=== PATIENT | male | born 1940 | race Caucasian/White ===

== ENCOUNTER 2021-09-19 10:34 | Outpatient (CLI) | payer MEDICARE, SELFPAY ==
--- NOTE | 2021-09-19 12:00 | NEURO_ITS ---
Impression: # Complains of foot drop and heaviness of legs. # Right chronic peroneal neuropathy; No active denervation noted. # Clinical correlation recommended. Nerve Conduction Studies Anti Sensory Summary Table Stim Site NR Peak (ms) P-T Amp (?V) Site1 Site2 Delta-P (ms) Dist (cm) Brett (m/s) Left Sup Fibular Anti Sensory (Ant Lat Mall) 14 cm 3.8 19.1 14 cm Ant Lat Mall 3.8 16.0 42 Right Sup Fibular Anti Sensory (Ant Lat Mall) 14 cm 3.6 4.9 14 cm Ant Lat Mall 3.6 16.0 44 Left Sural Anti Sensory (Lat Mall) NO RESPONSE Calf NR Calf Lat Mall 16.0 Right Sural Anti Sensory (Lat Mall) Calf 3.6 21.1 Calf Lat Mall 3.6 16.0 44 Motor Summary Table Stim Site NR Onset (ms) O-P Amp (mV) Site1 Site2 Delta-0 (ms) Dist (cm) Brett (m/s) Left Peroneal Motor (Vastus Med) Ankle 4.9 1.0 Popit Ankle 8.6 38.0 44 Popit 13.5 0.6 Right Peroneal Motor (Vastus Med) NO RESPONSE Ankle NR Popit Ankle 0.0 Popit NR B Fib Ankle 0.0 B Fib 13.8 0.0 Left Tibial Motor (Abd Pimentel Brev) Ankle 4.9 2.0 Knee Ankle 8.9 38.0 43 Knee 13.8 1.6 Right Tibial Motor (Abd Pimentel Brev) Ankle 4.9 1.4 Knee Ankle 8.9 39.0 44 Knee 13.8 2.9 F Wave Studies NR F-Lat (ms) L-R F-Lat (ms) Left Peroneal (Mrkrs) (EDB) 56.88 Right Peroneal (Mrkrs) (EDB) NO RESPONSE NR Left Tibial (Mrkrs) (Abd Hallucis) 54.38 1.25 Right Tibial (Mrkrs) (Abd Hallucis) 55.63 1.25 EMG Side Muscle Nerve Root Ins Act Fibs Amp Dur Recrt Comment Right AntTibialis Dp Br Fibular L4-5 Nml Nml Nml Nml Reduced Right Gastroc Tibial S1-2 Nml Nml Nml Nml Nml Right Fibularis Long Sup Br Fibular L5-S1 Nml Nml Nml Nml Nml Right Flex Dig Long Tibial L5-S2 Nml Nml Nml Nml Nml Right Ext Dig Brev Dp Br Fibular L5, S1 Nml Nml Nml Nml Reduced Left AntTibialis Dp Br Fibular L4-5 Nml Nml Nml Nml Nml Left Gastroc Tibial S1-2 Nml Nml Nml Nml Nml Left Fibularis Long Sup Br Fibular L5-S1 Nml Nml Nml Nml Nml Left Flex Dig Long Tibial L5-S2 Nml Nml Nml Nml Nml Left Ext Dig Brev Dp Br Fibular L5, S1 Nml Nml Nml Nml Nml Right AbdHallucis MedPlantar S1-2 Nml Nml Nml Nml Nml Left AbdHallucis MedPlantar S1-2 Nml Nml Nml Nml Nml MTDD
== END 2021-09-19 10:35 | disposition home or self-care (01) ==
LOC: ANHNEURO 10:37
PROVIDERS: PCP Internal Medicine Infectious Disease; Visit Provider Internal Medicine
DX: M62.81 Muscle weakness (generalized) (principal); G62.9 Polyneuropathy, unspecified
CPT/HCPCS: 95886; 95910